=== PATIENT | female | born 1945 | race Caucasian/White ===

== ENCOUNTER 2017-04-15 17:11 | Observation (INO) | payer OTHER, BC ==
[~2017-04-15] VITALS: Ht 157.5 cm; Wt 124.1 kg
[~2017-04-15 17:11] MED LIST: BISACODYL5 MG PO; CALTRATE 600 +1 EAC1 PO; CIPRO250 MG PO; COLACE100 MG PO; COUMADIN PO; CRESTOR10 MG PO; CYCLOBENZAPRINE10 MG PO; Calan SR,Covera HS,I PO; DAILY VALUE1 EACH PO; DEXAMETHASONE SO5 ML BOTH EYES; FEOSOL325 MG PO; FERROUS SULFAT325 MG PO; HYDROCHLOROTH12.5 M3 PO; HYZAAR 100-11 TABLET PO; K-DUR20 MEQ PO; KLOR-CON 88 ME1 PO; KLOR-CON 88 MEQ PO; LIPITOR20 MG PO; LOZOL2.5 MG PO; Levothroid,Synthroid PO; MOBIC15 MG PO; NORCO 5/3251 TABLET PO; POLYETHYLENE GL17 GM PO; PRAVACHOL80 MG PO; PRED FORTE100 DROP/5 BOTH EYES; PRED-G 1% EYE DR5 ML BOTH EYES; PROBIOTIC1 EAC1 PO; Pred Forte 1%,Omnipr RIGHT EYE; SENNA-DOCUSATE1 EAC1 PO; SYNTHROID88 MCG PO; TOPROL XL50 MG PO; TRAMADOL HCL50 MG PO; VERAPAMIL HCL240 MG PO; VITAMIN D31000 UNI2 PO; Vicodin,Lortab 5/500 PO; ZOFRAN4 MG IV; ZOFRAN4 MG PO
[2017-04-15 18:20] LABS: HEMATOCRIT 38.6 % (36.0-46.0); HEMOGLOBIN 12.9 G/DL (11.9-15.5); MCH 29.1 PG (29.0-34.0); MCHC 33.4 G/DL (30.0-36.0); MCV 87.1 FL (83-99); PLATELET COUNT 272 K/uL (156-360); RBC DIS.WIDTH-CV 13.7 % (11.8-14.6); RBC DIS.WIDTH-SD 43.4 % (39-53); RED BLOOD COUNT 4.43 M/uL (3.80-5.20); WHITE BLOOD COUNT 9.4 K/uL (4.1-10.2)
[2017-04-15 18:30] LABS: CHLORIDE 99 mEq/L (99-109); POTASSIUM 4.2 mEq/L (3.7-5.4); SODIUM 136 mEq/L (136-147)
[2017-04-15 18:31] LABS: GLUCOSE 98 mg/dL (70-99)
[2017-04-15 18:35] LABS: CREATININE 1.1 mg/dL (0.6-1.3); GFR ESTIMATE (CALCULATED) 52 mL/min/
[2017-04-15 18:36] LABS: UREA NITROGEN (BUN) 22 mg/dL (9-23)
[2017-04-15 18:40] LABS: TROP-I INTERPRETATION NEGATIVE; TROPONIN-I < 0.01 ng/mL (0.0-0.30)
[2017-04-15] MEDS ORDERED: MICRO-K8 ME2 PO (22:03)
[2017-04-15] MEDS ORDERED: ADULT ASPIRIN R81 MG PO (22:04)
[2017-04-15] MEDS ORDERED: BREO ELLIPTA I1 EACH IH (22:04)
[2017-04-15] MEDS ORDERED: VENTOLIN HFA18 GM IH (22:04)
[2017-04-15] MEDS ORDERED: ALDACTONE25 MG PO (22:05)
[2017-04-16] VITALS (9 sets, daily range): BP systolic 107–178; BP diastolic 55–77
[2017-04-16 01:37] LABS: TROP-I INTERPRETATION NEGATIVE; TROPONIN-I < 0.01 ng/mL (0.0-0.30)
[2017-04-16 01:39] LABS: HDL CHOLESTEROL 51 MG/DL (Desirable>=50); LDL CHOLESTEROL 86 mg/dL (Desirable<100); NON-HDL CHOLESTEROL 96 mg/dL (Desirable<160); TOTAL CHOLESTEROL 147 mg/dL (Desirable<200); TRIGLYCERIDES 49 MG/DL (Normal: <150)
[2017-04-16 06:03] LABS: TROP-I INTERPRETATION NEGATIVE; TROPONIN-I < 0.01 ng/mL (0.0-0.30)
[2017-04-16 16:14] LABS: BASE EXCESS 3.2 mEq/L (-3 to +3); BICARBONATE 27.9 mEq/L (22-26); CARBOXY HGB 1.3 % (0-5); COMMENTS - BLOOD GASES A+C+; DEVICE NC; METHEMOGLOBIN 1.1 % (0-1.5); O2 FLOW 2 L/MIN; PCO2 42 mm Hg (35-45); PO2 101 mm Hg (80-100); SITE RR; pH 7.43 (7.35-7.45)
[2017-04-17 03:59] VITALS: BP 139/69
[2017-04-17 09:00] VITALS: BP 150/68
[2017-04-17 12:42] VITALS: BP 127/68
[2017-04-17] MEDS ORDERED: DUONEB 2.5-0.5 M3 ML AEROSOL (14:39)
[2017-04-17] MEDS ORDERED: SPIRIVA RESPIMAT4 G1 IH (14:40)
== END 2017-04-17 16:45 | disposition home or self-care (01) ==
LOC: EME 17:11 → EDOF 23:45 → ENRESERV 23:46 → 5WEST 04-16 02:28
PROVIDERS: Hospitalist; Physician Assistant
DX: R06.02 Shortness of breath (principal); R09.02 Hypoxemia; E66.2 Morbid (severe) obesity with alveolar hypoventilation; Z68.43 Body mass index [BMI] 50.0-59.9, adult; G47.33 Obstructive sleep apnea (adult) (pediatric); J45.909 Unspecified asthma, uncomplicated; I10 Essential (primary) hypertension; E03.9 Hypothyroidism, unspecified; I71.2 Thoracic aortic aneurysm, without rupture; R01.1 Cardiac murmur, unspecified; Z96.643 Presence of artificial hip joint, bilateral; Z96.653 Presence of artificial knee joint, bilateral; Z90.710 Acquired absence of both cervix and uterus; Z79.82 Long term (current) use of aspirin
CPT/HCPCS: 36600; 71046; 71275; 80048; 80061; 82803; 84484; 85027; 85379; 87502; 93005; 94640; 94640 76; 94799; 99202; 99281; 99285; G0378; J1644; J2405